=== PATIENT | male | born 1945 | race Caucasian/White ===

== ENCOUNTER 2021-01-17 11:06 | Day surgery (SDC) | payer MEDICARE, BC ==
[2021-01-16 11:51] LABS: BASOPHILS # (AUTO) 0.1 X10'3 (0-0.2); BASOPHILS % (AUTO) 0.7 % (0-1); EOSINOPHILS # (AUTO) 0.1 X10'3 (0-0.9); EOSINOPHILS % (AUTO) 1.5 % (0-6); HEMATOCRIT 41.3 % (42.0-52.0); HEMOGLOBIN 14.2 g/dl (14.0-17.9); LYMPHOCYTES # (AUTO) 1.1 X10'3 (1.1-4.8); LYMPHOCYTES % (AUTO) 13.2 % (21-51); MEAN CORPUSCULAR HEMOGLOBIN 35.5 PG (27.0-31.0); MEAN CORPUSCULAR HGB CONC 34.5 g/dL (33.0-36.5); MEAN CORPUSCULAR VOLUME 103.1 FL (78-98); MEAN PLATELET VOLUME 8.9 FL (7.4-10.4); MONOCYTES % (AUTO) 11.3 % (2-12); NEUTROPHILS # (AUTO) 6.2 X10'3 (1.8-7.7); NEUTROPHILS % (AUTO) 73.3 % (42-75); PLATELET COUNT 145 X10'3 (140-440); RED BLOOD COUNT 4.01 X10'6 (4.70-6.10); RED CELL DISTRIBUTION WIDTH 13.3 % (11.5-14.5); WHITE BLOOD COUNT 8.5 X10'3 (4.5-11.0)
[2021-01-16 12:01] LABS: PARTIAL THROMBOPLASTIN TIME 31 SECONDS (22-32)
[2021-01-16 12:13] LABS: ALANINE AMINOTRANSFERASE 24 U/L (12-78); ALBUMIN 3.3 G/DL (3.4-5.0); ALBUMIN/GLOBULIN RATIO 0.6 (1.1-1.5); ALKALINE PHOSPHATASE 86 IU/L (46-116); ANION GAP 8 (8-16); ASPARTATE AMINO TRANSFERASE 24 U/L (10-37); BLOOD UREA NITROGEN 17 MG/DL (7-18); BUN/CREATININE RATIO 17.2 (5.4-32.0); CALCIUM 8.8 MG/DL (8.5-10.1); CHLORIDE 103 MMOL/L (99-107); CREATININE 0.99 MG/DL (0.60-1.10); GLUCOSE 112 MG/DL (70-104); POTASSIUM 4.6 MMOL/L (3.5-5.1); SODIUM 138 MMOL/L (135-145); TOTAL CARBON DIOXIDE 27.2 MMOL/L (24-32); TOTAL PROTEIN 8.8 G/DL (6.4-8.2); eGFR 73 ML/MIN
[~2021-01-17] VITALS: Ht 175.3 cm; Wt 95.3 kg
[2021-01-17] VITALS (13 sets, daily range): BP systolic 99–118; BP diastolic 54–82
[~2021-01-17 11:06] MED LIST: ATOR10TA87 PO; CARV10CP PO; CYAN-51 PO; ERGO500014 PO; FOLI0.8C PO; FURO40TA4 PO; KRIL500C PO; LISI-790 PO; LUTE20CA PO; MULT-1141 PO; POTA20TA19 PO; UBID200C32 PO; WALKERFR; ZINC50TA60 PO; [UNRECOGNIZED DRUG - CODE] PO
[2021-01-17] MEDS ORDERED: nitroGLYCERIN 0.4mg SUBLingual tab SL PRN ×2 (11:30→14:35)
[2021-01-17] MEDS ORDERED: diphenhydrAMINE 25mg capsule PO PRN (11:30)
[2021-01-17] MEDS ORDERED: LORazepam 0.5 MG tablet PO PRN (11:30)
[2021-01-17] MEDS ORDERED: CARV3.122 PO (11:30)
[2021-01-17] MEDS ORDERED: normal saline 1,000 ML IV SCH (11:30)
[2021-01-17] MEDS ORDERED: FISH12002 PO (11:30)
[2021-01-17] MEDS ORDERED: APIX2.5T PO (11:30)
[2021-01-17] MEDS ORDERED: iohexol 350 MG/ML 50ML vial IV ONE ×2 (12:24→13:41)
[2021-01-17] MEDS ORDERED: fentaNYL/PF 50MCG/1 ML 2ML syringe ONE (12:24)
[2021-01-17] MEDS ORDERED: LIDOcaine 1% (10mg/ml)w/preservative injection 20ml MDV ONE (12:24)
[2021-01-17] MEDS ORDERED: midazolam 1 mg/ML 2ml injection ONE (12:24)
[2021-01-17] MEDS ORDERED: iohexol 350MG/ML 100ml bottle IV ONE (12:24)
[2021-01-17] MEDS ORDERED: nitroGLYCERIN-Tridil 50MG/D5W 250 ML IV ONE (12:24)
[2021-01-17] MEDS ORDERED: ondansetron/PF 4mg/2ml inj IV PRN (14:35)
[2021-01-17] MEDS ORDERED: HYDROcodone/acetaminophen 5mg/325mg tablet PO PRN (14:35)
[2021-01-17] MEDS ORDERED: proCHLORperazine 10 MG/2 ml inj IV PRN (14:35)
[2021-01-17] MEDS ORDERED: OXAZEpam 15mg capsule PO PRN (14:35)
[2021-01-17] MEDS ORDERED: HYDROcodone/acetaminophen 10/325mg tab PO PRN (14:35)
[2021-01-18 11:22] LABS: HBSAG SCREEN Negative (Negative); HEP A AB, IGM Negative (Negative); HEPATITIS C ANTIBODY <0.1 s/co ratio (0.0-0.9)
== END 2021-01-17 20:10 | disposition home or self-care (01) ==
LOC: SSTAY O 11:06
PROVIDERS: ATTEND Internal Medicine Cardiovascular Disease
DX: R94.39 Abnormal result of other cardiovascular function study (principal); I25.810 Atherosclerosis of coronary artery bypass graft(s) without angina pectoris; I25.82 Chronic total occlusion of coronary artery; N40.0 Benign prostatic hyperplasia without lower urinary tract symptoms; I25.2 Old myocardial infarction; E78.5 Hyperlipidemia, unspecified; M19.90 Unspecified osteoarthritis, unspecified site; Z79.01 Long term (current) use of anticoagulants; Z79.899 Other long term (current) drug therapy; Z87.891 Personal history of nicotine dependence; Z95.810 Presence of automatic (implantable) cardiac defibrillator; Z96.659 Presence of unspecified artificial knee joint; R10.0 Acute abdomen
CPT/HCPCS: 36415; 71046; 80053; 80074; 85025; 85610; 85730; 93005; 93459; 93567; 99152; 99153; C1760; C1769; J1644; J2001; J2250; J3010; J7030; Q0163; Q9967; A4620; A6258; J3490

== ENCOUNTER 2021-02-14 08:31 | Day surgery (SDC) | payer MEDICARE, BC ==
[2021-02-12 10:24] LABS: BASOPHILS # (AUTO) 0.1 X10'3 (0-0.2); BASOPHILS % (AUTO) 0.7 % (0-1); EOSINOPHILS # (AUTO) 0.1 X10'3 (0-0.9); EOSINOPHILS % (AUTO) 1.7 % (0-6); LYMPHOCYTES # (AUTO) 1.2 X10'3 (1.1-4.8); LYMPHOCYTES % (AUTO) 14.7 % (21-51); MEAN CORPUSCULAR HEMOGLOBIN 35.6 PG (27.0-31.0); MEAN CORPUSCULAR HGB CONC 34.2 g/dL (33.0-36.5); MEAN CORPUSCULAR VOLUME 103.9 FL (78-98); MEAN PLATELET VOLUME 8.8 FL (7.4-10.4); MONOCYTES # (AUTO) 0.9 X10'3 (0-0.9); MONOCYTES % (AUTO) 11.5 % (2-12); NEUTROPHILS # (AUTO) 5.8 X10'3 (1.8-7.7); NEUTROPHILS % (AUTO) 71.4 % (42-75); PLATELET COUNT 134 X10'3 (140-440); RED BLOOD COUNT 3.94 X10'6 (4.70-6.10); RED CELL DISTRIBUTION WIDTH 13.5 % (11.5-14.5); WHITE BLOOD COUNT 8.1 X10'3 (4.5-11.0)
[2021-02-12 10:37] LABS: PARTIAL THROMBOPLASTIN TIME 28 SECONDS (22-32)
[2021-02-12 10:42] LABS: ALANINE AMINOTRANSFERASE 24 U/L (12-78); ALBUMIN 3.1 G/DL (3.4-5.0); ALBUMIN/GLOBULIN RATIO 0.6 (1.1-1.5); ALKALINE PHOSPHATASE 88 IU/L (46-116); ANION GAP 9 (8-16); ASPARTATE AMINO TRANSFERASE 21 U/L (10-37); BLOOD UREA NITROGEN 13 MG/DL (7-18); BUN/CREATININE RATIO 13.4 (5.4-32.0); CALCIUM 8.4 MG/DL (8.5-10.1); CHLORIDE 103 MMOL/L (99-107); CREATININE 0.97 MG/DL (0.60-1.10); GLUCOSE 121 MG/DL (70-104); POTASSIUM 4.1 MMOL/L (3.5-5.1); SODIUM 139 MMOL/L (135-145); TOTAL CARBON DIOXIDE 26.6 MMOL/L (24-32); TOTAL PROTEIN 8.3 G/DL (6.4-8.2); eGFR 75 ML/MIN
[2021-02-14] VITALS (12 sets, daily range): BP systolic 95–117; BP diastolic 50–68
[~2021-02-14] VITALS: Ht 175.3 cm; Wt 97.1 kg
[~2021-02-14 08:31] MED LIST changes: +APIX2.5T PO; -CARV10CP PO; +CARV3.122 PO; +FISH12002 PO; -KRIL500C PO; -MULT-1141 PO; -POTA20TA19 PO; -WALKERFR; -[UNRECOGNIZED DRUG - CODE] PO
[2021-02-14] MEDS ORDERED: diphenhydrAMINE 25mg capsule PO PRN (08:55)
[2021-02-14] MEDS ORDERED: LORazepam 0.5 MG tablet PO PRN (08:55)
[2021-02-14] MEDS ORDERED: normal saline 1,000 ML IV SCH (08:55)
[2021-02-14] MEDS ORDERED: nitroGLYCERIN 0.4mg SUBLingual tab SL PRN (08:55)
[2021-02-14] MEDS ORDERED: CLOP75TA34 PO (09:00)
[2021-02-14] MEDS: sodium chloride 0.45% 1,000 ML IV SCH ×2 (09:00→12:35)
[2021-02-14] MEDS ORDERED: APIX5TAB3 PO (09:00)
[2021-02-14] MEDS ORDERED: ASPI-10 PO (09:08)
[2021-02-14] MEDS ORDERED: ATOR10TA70 PO (09:08)
[2021-02-14] MEDS ORDERED: LISI10TA27 PO (09:08)
[2021-02-14] MEDS ORDERED: fentaNYL/PF 50MCG/1 ML 2ML syringe ONE (10:08)
[2021-02-14] MEDS ORDERED: LIDOcaine 1% (10mg/ml)w/preservative injection 20ml MDV ONE (10:08)
[2021-02-14] MEDS ORDERED: iohexol 350MG/ML 100ml bottle IV ONE (10:08)
[2021-02-14] MEDS ORDERED: nitroGLYCERIN-Tridil 50MG/D5W 250 ML IV ONE (10:08)
[2021-02-14] MEDS ORDERED: heparin 1,000unit/ml 10ml vial 10 ML ONE (10:08)
[2021-02-14] MEDS ORDERED: midazolam 1 mg/ML 2ml injection ONE ×2 (10:08→11:19)
[2021-02-14] MEDS ORDERED: heparin 25,000 UNIT/250ml bag 250 ML IV ONE (10:35)
[2021-02-14] MEDS ORDERED: tirofiban 5mg in NS 100mL 100 ML IV ONE (10:35)
[2021-02-14] MEDS ORDERED: proCHLORperazine 10 MG/2 ml inj IV PRN (12:35)
[2021-02-14] MEDS ORDERED: acetaminophen 325mg tablet PO PRN (12:35)
[2021-02-14] MEDS ORDERED: ondansetron/PF 4mg/2ml inj IV PRN (12:35)
[2021-02-14] MEDS ORDERED: HYDROcodone/acetaminophen 5mg/325mg tablet PO PRN (12:35)
[2021-02-14] MEDS ORDERED: OXAZEpam 15mg capsule PO PRN (12:35)
[2021-02-14] MEDS ORDERED: HYDROcodone/acetaminophen 10/325mg tab PO PRN (12:35)
[2021-02-15] MEDS ORDERED: clopidogrel 75mg tablet PO SCH (08:00)
== END 2021-02-14 20:00 | disposition home or self-care (01) ==
LOC: SSTAY O 08:31
PROVIDERS: ATTEND Internal Medicine Cardiovascular Disease
DX: R94.39 Abnormal result of other cardiovascular function study (principal); I25.119 Atherosclerotic heart disease of native coronary artery with unspecified angina pectoris; I10 Essential (primary) hypertension; E78.5 Hyperlipidemia, unspecified; I25.2 Old myocardial infarction; I42.9 Cardiomyopathy, unspecified; Z79.01 Long term (current) use of anticoagulants; Z95.810 Presence of automatic (implantable) cardiac defibrillator; Z95.1 Presence of aortocoronary bypass graft; Z98.890 Other specified postprocedural states; Z88.8 Allergy status to other drugs, medicaments and biological substances; Z87.891 Personal history of nicotine dependence; Z79.82 Long term (current) use of aspirin; Z79.899 Other long term (current) drug therapy
CPT/HCPCS: 36415; 80053; 85025; 85347; 85610; 85730; 93005; 99152; 99153; C1725; C1751; C1760; C1769; C1874; C1894; C9604; J1644; J2001; J2250; J3010; J3246; J7030; Q0163; Q9967; A4620; A6258; J3490

== ENCOUNTER 2025-03-21 09:55 | Day surgery (SDC) | payer MEDICARE, BC ==
[2025-03-18 13:12] LABS: MEAN PLATELET VOLUME 8.4 FL (7.4-10.4); PRE OP HEMATOCRIT 34.7 % (42.0-52.0); PRE OP HEMOGLOBIN 11.6 g/dL (14.0-17.9); PRE OP PLATELET COUNT 176 X10'3 (140-440); PRE OP WHITE BLOOD COUNT 5.3 10'3 (4.8-10.8); RED CELL DISTRIBUTION WIDTH 15.3 % (11.5-14.5)
[2025-03-18 13:25] LABS: PRE OP INR 1.3 INR; PRE OP PARTIAL THROMB. TIME 31.0 SECONDS (22-32); PRE OP PROTIME 12.6 SECONDS (9.0-12.0)
[2025-03-18 13:36] LABS: CREATININE 1.35 MG/DL (0.60-1.10); PRE OP ANION GAP 4 (8-16); PRE OP AST 27 U/L (10-37); PRE OP BILIRUB, TOTAL 2.2 MG/DL (0.0-1.0); PRE OP GLUCOSE 107 MG/DL (70-104); PRE OP POTASSIUM 4.1 MMOL/L (3.4-5.1); PRE OP SODIUM 134 MMOL/L (135-145); TOTAL CARBON DIOXIDE 28.8 MMOL/L (24-32); eGFR 51 ML/MIN
[2025-03-18 13:38] LABS: PRE OP ALT 4 U/L (30-65)
[2025-03-21] VITALS (12 sets, daily range): BP systolic 88–100; BP diastolic 53–66; PULSE 54–83; RESP 14–27; TEMP 97.6; O2SAT 93–99
[~2025-03-21] VITALS: Ht 172.7 cm; Wt 84.6 kg
[2025-03-21] MEDS: DOCUMENT DATE & TIME OF BETA-BLOCKER PO ONE (07:00)
[2025-03-21] MEDS: ceFAZolin 2gm/dext,iso 50mL 50 ML IV ONE (08:45)
[~2025-03-21 09:55] MED LIST changes: +ALLO100T25 PO; +ATOR10TA70 PO; -ATOR10TA87 PO; -CYAN-51 PO; -ERGO500014 PO; -FISH12002 PO; -FOLI0.8C PO; -LISI-790 PO; +LISI5TAB22 PO; -LUTE20CA PO; -UBID200C32 PO; -ZINC50TA60 PO
[2025-03-21] MEDS: ringers solution, lacted 1,000 ML IV SCH (10:24)
[2025-03-21] MEDS ORDERED: ceFAZolin 2gm/dext,iso 50mL 50 ML IV ONE (10:25)
[2025-03-21] MEDS: metoprolol tartrate 12.5mg (1/2 tablet) PO ONE (10:26)
[2025-03-21] MEDS ORDERED: LIDOcaine 1% 30ml preserv. free vial ONE (10:51)
[2025-03-21] MEDS ORDERED: BUPIVAcaine 2.5mg/ml inj 50ml vial (contains preservative) ONE (10:51)
[2025-03-21] MEDS ORDERED: fentaNYL/PF 50MCG/1 ML 2ML syringe ONE (11:27)
[2025-03-21] MEDS ORDERED: midazolam 1 mg/ML 2ml injection ONE (11:42)
[2025-03-21] MEDS ORDERED: propofol inj 20 ML IV ONE (11:48)
--- NOTE | 2025-03-21 11:58 | OPERATIVE REPORT ---
Operative Report Operative Report Cardiovascular surgery operative report 21 March 2025 Preoperative diagnosis: Ischemic cardiomyopathy status post ICD implantation, generator SAKSHI Postop diagnosis same Procedure: ICD generator replacement using a Medtr[employer] device model number DT PC 2q1 serial number [id number] Surgeon: Dr. Winnie Klein Anesthesia: Local with 1% lidocaine approximately 8 cc with monitored in his issues with coverage per Dr. Herrera Complications: None EBL: Less than 5 cc Procedure: The patient is taken to the operating room placed in supine position. Following the administration of intravenous sedation of the placement of appropriate lines the anterior chest was prepped and draped sterilely. The skin and subcutaneous tissue underlying the incision in the left prepectoral soft tissues was infiltrated with 1% lidocaine. The previous scar was then excised and the pocket surrounding the pulse generator was incised. This was done carefully to avoid injury to the leads as the patient is pacer dependent. The generator was removed from the pocket. The leads were disconnected. This was done sequentially to maintain pacing while the new generator was implanted. The leads were tested via the device showing a right ventricular impedance of 399 Ohms and a pacing threshold of 1 volt the left ventricular lead had a pacing impedance of 855 Ohms with a pacing threshold of 2 volts. The new generator was placed back within the pocket coiling all excess lead between the generator in the muscle. The generator was then secured with the muscle of the interrupted 0 Ethibond suture. The pocket was irrigated with antibiotic solution. The incision was closed by reapproximating the subcutaneous tissue with interrupted 2-0 Vicryl and the skin with a running 4-0 Monocryl subcuticular suture. Steri- Strips were then applied to skin and a Bioclusive dressing was placed. The patient was awakened and returned to the PACU in stable condition, having tolerated the procedure satisfactorily. There were no complications. Sponge, needle and instrument counts were correct x2 in the case. He will be discharged to home following recovery from his sedation. Follow up in two weeks in the office for recheck. He is to leave the dressing in place until seen in office. WINNIE KLEIN III, MD Mar 21, 2025 11:58
[2025-03-21] MEDS ORDERED: ringers solution, lacted 1,000 ML IV SCH (12:00)
[2025-03-21] MEDS ORDERED: morphine 4 MG/ML inj SYRINge IV PRN (12:00)
[2025-03-21] MEDS ORDERED: ondansetron/PF 4mg/2ml inj IV PRN (12:00)
[2025-03-21] MEDS ORDERED: HYDROmorphone/PF 0.2 MG/ML SYRINGE IV PRN ×2 (12:00)
[2025-03-21] MEDS ORDERED: ePHEDrine 50MG/ML INJ. ONE (14:14)
[2025-03-21] MEDS ORDERED: phenylephrine 10mg/ml inj. ONE (14:14)
[2025-03-21] MEDS ORDERED: 0.9 % SODIUM CHLORIDE 10 ML VIAL ONE (14:14)
== END 2025-03-21 13:59 | disposition home or self-care (01) ==
LOC: PAS 09:55
PROVIDERS: ATTEND Thoracic Surgery (Cardiothoracic Vascular Surgery)
DX: Z45.02 Encounter for adjustment and management of automatic implantable cardiac defibrillator (principal); I25.10 Atherosclerotic heart disease of native coronary artery without angina pectoris; I25.5 Ischemic cardiomyopathy; I10 Essential (primary) hypertension; I48.91 Unspecified atrial fibrillation; G47.33 Obstructive sleep apnea (adult) (pediatric); I25.2 Old myocardial infarction; M10.9 Gout, unspecified; Z79.01 Long term (current) use of anticoagulants; Z79.899 Other long term (current) drug therapy; Z95.1 Presence of aortocoronary bypass graft; Z96.653 Presence of artificial knee joint, bilateral
CPT/HCPCS: 33263; 36415; 80053; 82948; 85025; 85610; 85730; A4215; A4565; A4615; A4618; A6258; A7000; C1882; J0690; J2003; J2250; J2371; J2704; J3010; J3490; J7030; J7120; Z7506; Z7512; Z7610